=== PATIENT | female | born 1985 | race Caucasian/White ===

== ENCOUNTER 2020-10-12 19:55 | Inpatient (IN) | payer BC ==
[~2020-10-12] VITALS: Ht 172.7 cm; Wt 86.5 kg
[~2020-10-12 19:55] MED LIST: INSU100C SQ; INSU100I13 SQ
[2020-10-12 21:00] VITALS: BP 138/79
[2020-10-12] MEDS: fentaNYL PF VIAL 100 MCG/2 ML VIAL IVP PRN (21:56)
[2020-10-12] MEDS: ONDANSETRON PF 4 MG/2 ML VIAL. IVP PRN (21:56)
[2020-10-12] MEDS: POTASSIUM CL 20MEQ D5-0.45NACL 1,000 ML IV SCH (21:57)
--- NOTE | 2020-10-12 22:00 | NUR ---
Attempting to med reconciliate, patient reports that she doesn't remember her medications, that she is used to obtaining it from [facility], She is in pain, 'mostly my neck and shoulders.." To call Dr Covington for orders.
[2020-10-12 23:07] VITALS: BP 137/82
[2020-10-13] MEDS: PIPERACILLIN/TAZOBACTAM 3.375 GM in IV NORMAL SALINE 50ML 50 ML IV SCH ×5 (00:12→22:59)
[2020-10-13] MEDS: fentaNYL PF VIAL 100 MCG/2 ML VIAL IVP PRN ×4 (00:45→12:18)
--- NOTE | 2020-10-13 01:30 | NUR ---
Patient reporting nausea, did vomit, received zofran, continues to report her neck and shoulder pain, her abdominal pain is at 4/10, reports not 'bad..but this neck pain does hurt..' Patient given a heat pad, she reports to sleep with a heat pad nightly, (?) so not a new complaint (?), she did report to take gabapentin and flexeril for muscle spasms. to her posterior neck and her sternal pain. (she had a NISHA procedure 2019), Patient denies any pain when moving legs or knees up and down, does not have a fever, monitoring.
[2020-10-13] MEDS ORDERED: CYCL10TA2 PO (01:52)
[2020-10-13] MEDS ORDERED: CLON-77 PO (01:52)
[2020-10-13] MEDS ORDERED: MELA10TA2 PO (01:52)
[2020-10-13] MEDS ORDERED: GABA300C18 PO (01:52)
[2020-10-13] MEDS: ONDANSETRON PF 4 MG/2 ML VIAL. IVP PRN ×2 (02:05→12:20)
[2020-10-13 02:44] VITALS: BP 123/90
--- NOTE | 2020-10-13 03:38 | NUR ---
Patient complaining of a headache, reports at this time to have taken Imitrex in the past, "But I think this headache is because I've been vomiting..doesn't feel like a migraine.' Pt had initially reported a migraine, then denies it to feel like a migraine.
[2020-10-13 07:00] VITALS: BP 134/84
[2020-10-13] MEDS: POTASSIUM CL 20MEQ D5-0.45NACL 1,000 ML IV SCH (09:12)
[2020-10-13 09:30] LABS: BASO % 0 % (0-3); EOS % 0 % (0-3); HEMATOCRIT 36.9 % (36.0-47.0); HEMOGLOBIN 11.3 g/dL (12.0-15.5); LYMPH % 8 % (24-48); MEAN CORPUSCULAR HEMOGLOBIN 29 pg (25-35); MEAN CORPUSCULAR HGB CONC 31 g/dL (31-37); MEAN CORPUSCULAR VOLUME 93 fL (79-100); MONO # 1.2 x10^3/uL (0.0-1.1); MONO % 10 % (0-9); NEUT # 10.2 x10^3/uL (1.8-7.7); NEUT % 82 % (31-73); PLATELET COUNT 381 x10^3/uL (140-400); RED BLOOD COUNT 3.96 x10^6/uL (3.50-5.40); RED CELL DISTRIBUTION WIDTH 15.7 % (11.5-14.5); WHITE BLOOD COUNT 12.5 x10^3/uL (4.0-11.0)
[2020-10-13 09:34] LABS: ALBUMIN 2.7 g/dL (3.4-5.0); ALBUMIN/GLOBULIN RATIO 0.6 (1.0-1.7); CALCIUM 8.2 mg/dL (8.5-10.1); CREATININE 0.6 mg/dL (0.6-1.0); GFR 115.1; TOTAL BILIRUBIN 0.9 mg/dL (0.2-1.0); TOTAL PROTEIN 6.9 g/dL (6.4-8.2)
--- NOTE | 2020-10-13 10:21 | NUR ---
SW following. Discussed with RN, pt from home with family, room air, NPO, ad giovanny. Pt currently on IV abx. RN advised no SW needs at this time. SW will continue to follow.
[2020-10-13 11:00] VITALS: BP 128/78
[2020-10-13] MEDS ORDERED: DEXTROSE 50% 25 GM / 50ML DISP.SYRIN. IV PRN ×2 (11:00→13:30)
[2020-10-13] MEDS ORDERED: INSULIN LISPRO 300 UNITS/3 ML VIAL. SQ SCH (12:00)
[2020-10-13] MEDS ORDERED: CITA40TA5 PO (13:46)
[2020-10-13] MEDS ORDERED: CLONAZEPAM1 MG PO (13:46)
[2020-10-13] MEDS ORDERED: GABA600T7 PO (13:46)
[2020-10-13] MEDS ORDERED: ALBU2.5V5 NEB (13:46)
[2020-10-13] MEDS ORDERED: OMEP40CA45 PO (13:46)
[2020-10-13] MEDS ORDERED: TRAM50TA PO (13:46)
[2020-10-13] MEDS ORDERED: NICOTINE 14MG PATCH. TD PRN (14:00)
[2020-10-13] MEDS ORDERED: CYCLOBENZAPRINE 10 MG TABLET. PO SCH (14:00)
[2020-10-13] MEDS ORDERED: clonazePAM 0.5 MG TABLET PO SCH (14:00)
[2020-10-13] MEDS ORDERED: ALBUTEROL SULFATE 2.5 MG/3 ML NEBU. NEB PRN (14:00)
[2020-10-13] MEDS: GABAPENTIN 300 MG CAPSULE. PO SCH ×2 (14:09→20:22)
[2020-10-13] MEDS: PANTOPRAZOLE 40 MG TABLET.DR. PO SCH (14:09)
[2020-10-13] MEDS: CITALOPRAM 20 MG TABLET. PO SCH (14:09)
[2020-10-13] MEDS: traMADol 50 MG TABLET PO PRN ×2 (14:10→20:17)
[2020-10-13] MEDS: CYCLOBENZAPRINE 10 MG TABLET. PO PRN ×2 (14:10→20:22)
[2020-10-13] MEDS: LIDOCAINE (700MG/PATCH) PATCH. TD SCH (14:14)
--- NOTE | 2020-10-13 14:27 | HP ---
ADMIT DATE: 10/12/2020 HISTORY OF PRESENT ILLNESS: The patient is a 35-year-old female patient who presented to the emergency room of [facility] complaining of abdominal pain that started around the umbilical area for 2 days associated with fever, temperature up to 101. She has also some nausea and vomiting. The patient presented to urgent care who reportedly performed the rapid COVID test that was negative and obtained an x-ray of her abdomen. Given physical exam findings and after this testing urgent care provider requested the patient to present to the emergency room for further evaluation. She denied any trauma. Denied any known sick contact. Denied any known exposure to COVID-19. She apparently was extensively investigated and has had lab work as well as imaging studies. Her lab work showed mild leukocytosis. White cell count 12,000. Her chemistry showed deranged liver enzymes. However, her serum lipase was 31 and her lactic acid was 2.3. Urinalysis showed mild proteinuria and large amount of glucosuria and ketonuria, large amount of blood but otherwise unremarkable. Her test was negative and her rapid test for coronavirus was negative. She apparently had a chest x-ray, which showed cardiomegaly due to pericardial effusion concerning for acute pericarditis bibasilar heterogenous opacities, probably representing subsegmental and relaxation atelectasis, although superimposed infection not excluded. She has small bilateral pleural effusion. Her abdomen and pelvis CT scan showed that there is haziness and fluid surrounding the pancreas suggestive of acute pancreatitis. Recommend correlation with lipase, moderate pericardial effusion, moderate bilateral pleural effusion, bilateral lower lobe consolidation and ground-glass opacities may be pneumonia or atelectasis. Periportal edema nonspecific. Consideration includes secondary to pancreatitis, systemic hypervolemia, or hepatitis. Punctate nonobstructing left renal calculi and right adnexal cyst, moderate pelvic free fluid. Findings probably physiologic. Given this finding, the patient was transferred to [facility] for further evaluation and treatment. PAST MEDICAL HISTORY: Significant for type 1 diabetes mellitus, which she has an insulin infusion pump has hyperlipidemia, osteoarthritis. She has peripheral neuropathy, gastroparesis, and migraine headache. PAST SURGICAL HISTORY: Significant for the Saida bar procedure for pectus excavatum. She has also had cholecystectomy. ALLERGIES: SHE IS ALLERGIC TO NONSTEROIDAL ANTI-INFLAMMATORY MEDICATION AND CODEINE. MEDICATIONS: She is currently on following medication. She is on gabapentin 300 mg 3 times a day. She is on clonazepam 0.5 mg at bedtime, Flexeril 10 mg 3 times a day and she is on insulin by insulin infusion pump. FAMILY HISTORY: She has one brother and one sister, both alive and healthy. Father is alive and has hypothyroidism and obstructive sleep apnea. Mother at age of 44 because of alcoholic liver cirrhosis. SOCIAL HISTORY: She is , has a son and a daughter. She smokes half a pack a day, does not drink alcohol or recreational drugs. 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 REVIEW OF SYSTEMS: The patient denied any blurring of vision, cataracts, glaucoma or macular degeneration. She denied any earache, tinnitus or sensory deafness. Denied nosebleed, stuffy nose or postnasal drip. Denied any sore throat, sore tongue, toothache, hoarseness of voice or difficulty swallowing. She did have some nausea and vomiting. Denied any diarrhea or constipation. Denied any hematemesis, melena or hematochezia. Denies any dysuria, frequency or hematuria. Denied any chest pain. Did complain of shortness of breath that apparently has been going on for almost a month now with orthopnea. ASSESSMENT AND PLAN: The patient stated that she has been extensively investigated before her next procedure at [facility] and did a stress test as well as an echocardiogram and all the tests were negative. Given the finding, I think the findings are consistent probably with fluid overload and congestive heart failure. There has a viral infection causing also neck pain and pericarditis and all the findings on the CT scan. My plan is to consult the wrapper opener as well as the balling machine operator and perhaps infectious disease specialist. We will allow her to have clear liquid diet. We will stop her infusion pump and put her on insulin sliding scale. MICHELLE DR: Neena TID: [id number]
--- NOTE | 2020-10-13 14:32 | PDOC2 ---
GI CONSULT Date of Service: DATE: 10/13/20 TIME: 14:32 Reason For Consult: abd pain HPI: HPI: 35 y/o female sent from [facility] last night. 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 Had upper abdominal pain associated w/ n/v and fever (up to 101). Son had similar symptoms, quickly improved. Her symptoms progressed to went to ER yesterday per advice of urgent care. At [facility]: WBC 12.3, Hgb 12.1, MCV 89, plt 457, lactic 2.3, bili 0.8, AST 54, ALT 98, Alk Phos 155, lipase 31. CXR: cardiomegaly due to pericardial effusion concerning for acute pericarditis, small bilateral pleural effusions. CT A/P: moderate pericardial effusion, moderate bilateral pleural effusions, bilateral lower lobe consolidations, periportal edema, non-obstructing left renal cfalculi, haziness and fat surrounding pancreas, fluid inferior to pancreas tail (not organized), IUD, right adnexal cyst, moderate pelvic free fluid. We are asked to see her this afternoon for abd pain. Nurse reports multipseveralle other consults pending as well. Denies reflux/heartburn, dysphagia, hematemesis (though does report hemoptysis), chronic abd pain or chronic n/v, diarrhea, hematochezia, or melena. Typically no issues w/ constipation - last stooled 2-3 days ago. Has lost some weight recently - attributes to diabetes - fluctuates. No previous EGD or colonoscopy. S/p cholecystectomy (no stones). No liver, pancreas, or PUD history. After I saw, H&P reviewed - mentions h/o gastroparesis which she did not mention to me. No NSAIDs. H/o pectus excavatum s/p beatris procedure at [facility] on the [place] in 12/[place]. After that had an abdominal abscess - unclear cause - was hospitalized, treated with antibiotics - resolved. Also recently had some pain in her throat w/ breathing and bending over. Had elevated D-dimer which prompted chest CT at [facility] which was reportedly negative for PE. Has been drinking water, has clear liquids ordered along w/ PO PPI. PMH: PMH: DM w/ insulin pump, pectus excavatum, abdominal abscess, migraines cholecystectomy, Beatris procedure, IUD FH: Family History: Other (diverticulitis, alcoholic cirrhosis) Social History: Smoke: <1 pack per day ALCOHOL: rare Drugs: None ROS: GEN: +fever HEENT: Denies blurred vision, sore throat CV: Denies chest pain RESP: +cough, hemoptysis GI: Per HPI : Denies hematuria, dysuria ENDO: +weight loss NEURO: Denies confusion, dizziness MSK: Denies weakness, joint pain/swelling SKIN: Denies jaundice, pruritus Vitals: Vitals: Vital Signs Date Time Temp Pulse Resp B/P (MAP) Pulse Ox O2 Delivery O2 Flow Rate FiO2 10/13/20 14:10 97 Room Air 10/13/20 11:00 98.7 113 18 128/78 (95) 98.7 Labs: Labs: Laboratory Tests Test 10/13/20 00:09 10/13/20 06:18 10/13/20 08:00 10/13/20 11:01 Glucose (Fingerstick) 239 mg/dL (70-99) 222 mg/dL (70-99) 210 mg/dL (70-99) White Blood Count 12.5 x10^3/uL (4.0-11.0) Red Blood Count 3.96 x10^6/uL (3.50-5.40) Hemoglobin 11.3 g/dL (12.0-15.5) Hematocrit 36.9 % (36.0-47.0) Mean Corpuscular Volume 93 fL (79-100) Mean Corpuscular Hemoglobin 29 pg (25-35) Mean Corpuscular Hemoglobin Concent 31 g/dL (31-37) Red Cell Distribution Width 15.7 % (11.5-14.5) Platelet Count 381 x10^3/uL (140-400) Neutrophils (%) (Auto) 82 % (31-73) Lymphocytes (%) (Auto) 8 % (24-48) Monocytes (%) (Auto) 10 % (0-9) Eosinophils (%) (Auto) 0 % (0-3) Basophils (%) (Auto) 0 % (0-3) Neutrophils # (Auto) 10.2 x10^3/uL (1.8-7.7) Lymphocytes # (Auto) 1.0 x10^3/uL (1.0-4.8) Monocytes # (Auto) 1.2 x10^3/uL (0.0-1.1) Eosinophils # (Auto) 0.0 x10^3/uL (0.0-0.7) Basophils # (Auto) 0.0 x10^3/uL (0.0-0.2) Sodium Level 136 mmol/L (136-145) Potassium Level 4.0 mmol/L (3.5-5.1) Chloride Level 99 mmol/L (98-107) Carbon Dioxide Level 24 mmol/L (21-32) Anion Gap 13 (6-14) Blood Urea Nitrogen 12 mg/dL (7-20) Creatinine 0.6 mg/dL (0.6-1.0) Estimated GFR (Cockcroft-Gault) 115.1 BUN/Creatinine Ratio 20 (6-20) Glucose Level 214 mg/dL (70-99) Lactic Acid Level 1.7 mmol/L (0.4-2.0) Calcium Level 8.2 mg/dL (8.5-10.1) Total Bilirubin 0.9 mg/dL (0.2-1.0) Aspartate Amino Transf (AST/SGOT) 36 U/L (15-37) Alanine Aminotransferase (ALT/SGPT) 79 U/L (14-59) Alkaline Phosphatase 142 U/L (46-116) Total Protein 6.9 g/dL (6.4-8.2) Albumin 2.7 g/dL (3.4-5.0) Albumin/Globulin Ratio 0.6 (1.0-1.7) Lipase 24 U/L (73-393) Allergies: Coded Allergies: NSAIDS (Non-Steroidal Anti-Inflamma (Unverified Allergy, Intermediate, 06/03/14) codeine (Unverified Allergy, Intermediate, 06/03/14) Medications: Current Medications Medications (Trade) Dose Ordered Sig/Isabella Route PRN Reason Start Time Stop Time Status Last Admin Dose Admin Ondansetron HCl (Zofran) 4 mg PRN Q4HRS PRN IVP NAUSEA/VOMITING 1ST CHOICE 10/12/20 21:30 10/13/20 12:20 Fentanyl Citrate (Fentanyl 2ml Vial) 50 mcg PRN Q3HRS PRN IVP SEVERE PAIN 7-10 10/12/20 21:30 10/13/20 12:18 Potassium Chloride/Dextrose/ Sod Cl 1,000 ml @ 100 mls/hr Q10H IV 10/12/20 22:00 10/13/20 13:28 DC 10/13/20 09:12 Piperacillin Sod/ Tazobactam Sod 3.375 gm/Sodium Chloride 50 ml @ 100 mls/hr Q6HRS IV 10/13/20 00:00 10/13/20 12:21 Tramadol HCl (Ultram) 50 mg Q6HRS PRN PO PAIN 10/13/20 14:00 10/13/20 14:10 Citalopram Hydrobromide (CeleXA) 40 mg DAILY PO 10/13/20 14:00 10/13/20 14:09 Gabapentin (Neurontin) 600 mg TID PO 10/13/20 14:00 10/13/20 14:09 Pantoprazole Sodium (Protonix) 40 mg DAILYAC PO 10/13/20 14:00 10/13/20 14:09 Lidocaine (Lidoderm) 2 patch DAILY TD 10/13/20 14:00 10/13/20 14:14 Cyclobenzaprine HCl (Flexeril) 10 mg TID PRN PO MUSCLE SPASMS 10/13/20 14:00 10/13/20 14:10 Imaging: Imaging: per HPI PE: GEN: uncomfortable, family present HEENT: Atraumatic, PERRL LUNGS: some diminished, room air HEART: tachycardic ABD: soft, some distention, epigastric to LUQ discomfort, quiet EXTREMITY: No edema SKIN: No rashes, no jaundice NEURO/PSYCH: A & O 3 A/P: A/P: Upper abd pain, n/v, fever, cough/hemoptysis Leukocytosis, lactic acidosis (resolved), elevated LFTs (better) Abnormal CT - moderate pericardial effusion, moderate bilateral pleural effusions, bilateral lower lobe consolidations, periportal edema, haziness and fat surrounding pancreas, fluid inferior to pancreas tail (not organized) CRC screen - average risk S/p cholecystectomy ?h/o gastroparesis H/o DM, pectus excavatum s/p Beatris procedure ?and post-op abscess -- Cardiology and ID evals pending. ?pancreatitis - unclear cause - cautious with clear liquids. Agree w/ PPI - change to IV if needed. Will ask for records re: abscess from [facility]. Will try to clarify gastroparesis history later. SIMI PAUL October 13, 2020 14:32
--- NOTE | 2020-10-13 14:43 | EKG ---
[facility] [address] [place] [address] Test Date: 2020-10-13 Test Time: 14:40:42 Pat Name: FLORESITA DIAZ Department: Room: 8 1 Gender: F Tie Puller: KATELYN : 1985 Requested By: ИРИНА FOREMAN Order Number: [id number] Reading MD: Measurements Intervals [place] Rate: 108 P: 39 CA: 130 QRS: 31 QRSD: 84 T: 25 QT: 288 QTc: 389 Interpretive Statements SINUS TACHYCARDIA LOW LIMB LEAD VOLTAGE NO SPECIFIC ECG ABNORMALITIES RI6.02 No previous ECG available for comparison
--- NOTE | 2020-10-13 14:48 | PN ---
DATE: 10/13/2020 SUBJECTIVE: The patient is resting, slightly propped up in bed, continue to complain mostly of headache and neck pain, but also mild epigastric and right upper quadrant pain and has had no more nausea or vomiting. PHYSICAL EXAMINATION: GENERAL: When I examined her, she was pale, no jaundice, cyanosis or thyromegaly. No jugular venous distention. Somewhat generalized anasarca. VITAL SIGNS: Her heart rate was 113, blood pressure was 128/78, temperature was 98.7, respiratory rate was 18 and oxygen saturation was 97%. HEAD, EYES, EARS, NOSE AND THROAT: Normocephalic, atraumatic. NECK: Supple. HEART: Showed normal first and second heart sounds, no gallop, rub or murmur. CHEST: Shows central trachea, equal bilateral chest expansion, air entry, vesicular breath sounds. I could not appreciate any crepitation or rhonchi. ABDOMEN: Distended. Tenderness mostly in the epigastric and right upper quadrant. There is no guarding or rigidity. No organomegaly. All hernial orifices intact. Bowel sounds normal. NEUROLOGIC: She is awake, alert, responding appropriately. All cranial nerves intact. She moves without difficulty. Her intake and output incompletely recorded. LABORATORY DATA: Her lab work this morning showed a serum sodium 136, potassium 4, chloride 99, bicarbonate 24, anion gap of 13, BUN 12, creatinine 0.6. Estimated GFR was 115 mL per minute. Her glucose was 114, lactic acid 1.7, calcium was 8.2. Total bilirubin is normal. AST, ALT, alkaline phosphatase slightly elevated. Total protein was 6.9, albumin was 2.7 and lipase is only 24. Her white cell count was 12,500, hemoglobin was 11, hematocrit 36, MCV 93 and platelet count 381,000 with a manual differential showed 82% polymorphs, 8% lymphocytes and 10% monocytes. ASSESSMENT AND PLAN: The patient presented with acute abdominal pain; however, her imaging studies showed fluid around the pericardium, has bilateral pleural effusion as well as fluid around the pancreas, isac hepatis and in the pelvis. The patient is short of breath and said that has been short of breath for almost a month now. She also has orthopnea. My impression is that the patient is probably in heart failure, although obviously other possibilities include viral syndrome as she has also some headache and neck pain and with all the fluid around her pericardium, around the pleural space and the peritoneal cavity. I discontinued her IV fluids and started her on a clear liquid diet. I stopped her insulin infusion pump and will start her on insulin sliding scale. I did consult the applied research director and Infectious Disease specialist. I am not really convinced that she has pancreatitis, although I asked the Gastroenterology to see her also. EAN/OSCAR DR: Neena TID: [id number]
--- NOTE | 2020-10-13 15:04 | PDOC2 ---
CARDIAC CONSULT DATE OF CONSULT Date of Consult DATE: 10/13/20 TIME: 15:01 REASON FOR CONSULT Reason for Consult: Fluid volume overload REFERRING PHYSICIAN Referring Physician: Dr. Covington SOURCE Source: Caregiver, Chart review HISTORY OF PRESENT ILLNESS HISTORY OF PRESENT ILLNESS This is a 35 yo, with history of diabetes and pancreatitis, who presented to [facility] secondary to abdominal pain, nausea/vomiting, and fevers. Was febrile upon arrival to ED. CT abdomen/pelvis suggestive of acute pancreatitis. Also evidence of pericardial and pleural effusion. There was also a nonobstructing left renal calculi and moderate pelvic free fluid. Patient was transferred to [facility] for further evaluation and treatment. Patient presently asleep. HPI obtained from family at bedside and chart review. Family reports she has experiencing some shortness of breath over the last couple of weeks. Also has had some swelling in her LE after a long day of working on her feet. This resolved during the night. No dizziness, diaphoresis. Reports son had been ill with nausea/vomiting, but he got better. She continued to not feel well and experienced abdominal pain so they brought her to the ED of further evaluation and treatment. Patient underwent Saida bar procedure for pectus excavatum at [facility] in December of 2019. Reports undergoing cardiac testing prior to this. Post-operatively, family reports development of abdominal abscess for which she was treated with IV antibiotic therapy with resolution. Family reports she experienced similar symptoms when this abscess developed. PAST MEDICAL HISTORY Cardiovascular: Hyperlipidemia CENTRAL NERVOUS SYSTEM: Periperal neuropathy Hepatobiliary: Other (pancreatitis ) Musculoskeletal: Other (pectus excavatum) Endocrine: Diabetes PAST SURGICAL HISTORY Past Surgical History: Cholecystectomy, Other (Saida bar procedure for pectus ) FAMILY HISTORY Family History: Diabetes, Heart Disease, Hypertension SOCIAL HISTORY Smoke: <1 pack per day ALCOHOL: none Drugs: None Lives: with Family CURRENT MEDICATIONS CURRENT MEDICATIONS Current Medications Medications (Trade) Dose Ordered Sig/Isabella Route PRN Reason Start Time Stop Time Status Last Admin Dose Admin Ondansetron HCl (Zofran) 4 mg PRN Q4HRS PRN IVP NAUSEA/VOMITING 1ST CHOICE 10/12/20 21:30 10/13/20 12:20 Fentanyl Citrate (Fentanyl 2ml Vial) 50 mcg PRN Q3HRS PRN IVP SEVERE PAIN 7-10 10/12/20 21:30 10/13/20 12:18 Potassium Chloride/Dextrose/ Sod Cl 1,000 ml @ 100 mls/hr Q10H IV 10/12/20 22:00 10/13/20 13:28 DC 10/13/20 09:12 Piperacillin Sod/ Tazobactam Sod 3.375 gm/Sodium Chloride 50 ml @ 100 mls/hr Q6HRS IV 10/13/20 00:00 10/13/20 12:21 Tramadol HCl (Ultram) 50 mg Q6HRS PRN PO PAIN 10/13/20 14:00 10/13/20 14:10 Citalopram Hydrobromide (CeleXA) 40 mg DAILY PO 10/13/20 14:00 10/13/20 14:09 Gabapentin (Neurontin) 600 mg TID PO 10/13/20 14:00 10/13/20 14:09 Pantoprazole Sodium (Protonix) 40 mg DAILYAC PO 10/13/20 14:00 10/13/20 14:09 Lidocaine (Lidoderm) 2 patch DAILY TD 10/13/20 14:00 10/13/20 14:14 Cyclobenzaprine HCl (Flexeril) 10 mg TID PRN PO MUSCLE SPASMS 10/13/20 14:00 10/13/20 14:10 ALLERGIES ALLERGIES: Coded Allergies: NSAIDS (Non-Steroidal Anti-Inflamma (Unverified Allergy, Intermediate, 06/03/14) codeine (Unverified Allergy, Intermediate, 06/03/14) ROS Review of System 14 point ROS conducted with pertinent positives noted above in hPI PHYSICAL EXAM General: No acute distress HEENT: Atraumatic Lungs: Clear to auscultation Heart: Regular rate (SR/ST) Abdomen: Soft Extremities: No edema, Normal pulses Skin: No significant lesion Neuro: Other (sleeping ) MUSCULOSKELETAL: No deformity VITALS/I&O VITALS/I&O: Vital Signs Date Time Temp Pulse Resp B/P (MAP) Pulse Ox O2 Delivery O2 Flow Rate FiO2 10/13/20 14:10 97 Room Air 10/13/20 11:00 98.7 113 18 128/78 (95) 98.7 I & O 10/12/20 10/12/20 10/13/20 15:00 23:00 07:00 Intake Total 0 ml 100 ml Output Total 100 ml 270 ml Balance -100 ml -170 ml LABS Lab: Laboratory Tests Test 10/13/20 00:09 10/13/20 06:18 10/13/20 08:00 10/13/20 11:01 Glucose (Fingerstick) 239 mg/dL (70-99) H 222 mg/dL (70-99) H 210 mg/dL (70-99) H White Blood Count 12.5 x10^3/uL (4.0-11.0) H Red Blood Count 3.96 x10^6/uL (3.50-5.40) Hemoglobin 11.3 g/dL (12.0-15.5) L Hematocrit 36.9 % (36.0-47.0) Mean Corpuscular Volume 93 fL (79-100) Mean Corpuscular Hemoglobin 29 pg (25-35) Mean Corpuscular Hemoglobin Concent 31 g/dL (31-37) Red Cell Distribution Width 15.7 % (11.5-14.5) H Platelet Count 381 x10^3/uL (140-400) Neutrophils (%) (Auto) 82 % (31-73) H Lymphocytes (%) (Auto) 8 % (24-48) L Monocytes (%) (Auto) 10 % (0-9) H Eosinophils (%) (Auto) 0 % (0-3) Basophils (%) (Auto) 0 % (0-3) Neutrophils # (Auto) 10.2 x10^3/uL (1.8-7.7) H Lymphocytes # (Auto) 1.0 x10^3/uL (1.0-4.8) Monocytes # (Auto) 1.2 x10^3/uL (0.0-1.1) H Eosinophils # (Auto) 0.0 x10^3/uL (0.0-0.7) Basophils # (Auto) 0.0 x10^3/uL (0.0-0.2) Sodium Level 136 mmol/L (136-145) Potassium Level 4.0 mmol/L (3.5-5.1) Chloride Level 99 mmol/L (98-107) Carbon Dioxide Level 24 mmol/L (21-32) Anion Gap 13 (6-14) Blood Urea Nitrogen 12 mg/dL (7-20) Creatinine 0.6 mg/dL (0.6-1.0) Estimated GFR (Cockcroft-Gault) 115.1 BUN/Creatinine Ratio 20 (6-20) Glucose Level 214 mg/dL (70-99) H Lactic Acid Level 1.7 mmol/L (0.4-2.0) Calcium Level 8.2 mg/dL (8.5-10.1) L Total Bilirubin 0.9 mg/dL (0.2-1.0) Aspartate Amino Transferase (AST) 36 U/L (15-37) Alanine Aminotransferase (ALT) 79 U/L (14-59) H Alkaline Phosphatase 142 U/L (46-116) H Total Protein 6.9 g/dL (6.4-8.2) Albumin 2.7 g/dL (3.4-5.0) L Albumin/Globulin Ratio 0.6 (1.0-1.7) L Lipase 24 U/L (73-393) L Laboratory Tests 10/13/20 08:00 Laboratory Tests 10/13/20 08:00 ASSESSMENT/PLAN ASSESSMENT/PLAN 1. Abdominal pain, nausea/vomiting; Ct abdomen pelvis with evidence of pancreatitis. Lipase 24. as per GI 2. Leukocytosis, lactic acidosis, fevers; ID consulted 3. H/o pectus excavatum s/p Saida procedure at [facility] 12/2019. Underwent cardiac workup at that time. Will obtain records from [facility] 4. H/o abdominal abscess s/p Saida procure; resolved with IV antibiotic therapy. reports symptoms were similar to current presentation 5. Pericardial effusion; noted on CT. Hemodynamically stable. Will obtain echo to assess LV systolic function, pericardial effusion 6. Elevated LFTs 7. Hyperlipidemia 8. Diabetes, II; as per LIO NORRIS APRN October 13, 2020 15:04
[2020-10-13] MEDS: INSULIN LISPRO 300 UNITS/3 ML VIAL. SQ SCH (17:00)
[2020-10-13 19:00] VITALS: BP 127/74
[2020-10-13] MEDS: clonazePAM 0.5 MG TABLET PO PRN (20:22)
[2020-10-13] MEDS: INSULIN GLARGINE SYRINGE. SQ SCH (20:24)
[2020-10-13] MEDS: PATCH REMOVAL. MC SCH (20:31)
[2020-10-13] MEDS ORDERED: NON FORMULARY ITEM (Melatonin 1 TAB) PO SCH (21:00)
[2020-10-13 22:41] VITALS: BP 122/69
[2020-10-14] VITALS (14 sets, daily range): BP systolic 122–164; BP diastolic 61–88
[2020-10-14] MEDS: fentaNYL PF VIAL 100 MCG/2 ML VIAL IVP PRN ×2 (03:04→19:51)
[2020-10-14] MEDS: PIPERACILLIN/TAZOBACTAM 3.375 GM in IV NORMAL SALINE 50ML 50 ML IV SCH ×4 (05:25→23:23)
[2020-10-14] MEDS: clonazePAM 0.5 MG TABLET PO PRN ×2 (05:31→19:50)
[2020-10-14] MEDS: traMADol 50 MG TABLET PO PRN ×2 (06:16→19:51)
[2020-10-14] MEDS: INSULIN LISPRO 300 UNITS/3 ML VIAL. SQ SCH ×3 (08:00→17:00)
[2020-10-14] MEDS: PANTOPRAZOLE 40 MG TABLET.DR. PO SCH (08:15)
[2020-10-14] MEDS: GABAPENTIN 300 MG CAPSULE. PO SCH ×3 (08:15→19:51)
[2020-10-14] MEDS: CITALOPRAM 20 MG TABLET. PO SCH (08:16)
[2020-10-14] MEDS: LIDOCAINE (700MG/PATCH) PATCH. TD SCH (08:18)
[2020-10-14 08:35] LABS: HEMATOCRIT 32.6 % (36.0-47.0); RED BLOOD COUNT 3.76 x10^6/uL (3.50-5.40); RED CELL DISTRIBUTION WIDTH 14.5 % (11.5-14.5); WHITE BLOOD COUNT 10.7 x10^3/uL (4.0-11.0)
[2020-10-14 09:12] LABS: ALBUMIN 2.6 g/dL (3.4-5.0); ALBUMIN/GLOBULIN RATIO 0.6 (1.0-1.7); C-REACTIVE PROTEIN 228.9 mg/L (0-3.3); CALCIUM 8.1 mg/dL (8.5-10.1); CREATININE 0.7 mg/dL (0.6-1.0); GFR 96.4; POTASSIUM 3.3 mmol/L (3.5-5.1); TOTAL BILIRUBIN 0.8 mg/dL (0.2-1.0); TOTAL PROTEIN 6.8 g/dL (6.4-8.2)
--- NOTE | 2020-10-14 10:00 | PN ---
DATE: 10/14/2020 SUBJECTIVE: The patient is resting, slightly propped up in bed in no apparent distress. She continued to complain of abdominal pain, no nausea or vomiting. She tolerated clear liquid. Continue to have neck pain, although the Lidoderm patch is helping. PHYSICAL EXAMINATION: GENERAL: When I examined her, she was pale, but no jaundice, cyanosis, no lymphadenopathy, no thyromegaly, no jugular venous distention, but mild bilateral limb edema. VITAL SIGNS: Her heart rate was 121, blood pressure was 138/88, temperature was 99.2, respiratory rate was 18 and oxygen saturation was 93% on room air. HEAD, EYES, EARS, NOSE AND THROAT: Normocephalic, atraumatic. NECK: Supple. HEART: Normal first and second heart sounds, no gallop, murmur. CHEST: Shows central trachea, equal bilateral chest expansion, air entry, vesicular breath sounds with bilateral basal crepitation. Could not appreciate any rhonchi. ABDOMEN: Distended, soft. Tenderness mostly in the epigastric and right upper quadrant. There is no guarding or rigidity. No organomegaly. All hernial orifice intact. Bowel sounds normal. NEUROLOGIC: She is grossly intact. Her intake and output are incompletely recorded. LABORATORY DATA: Her lab work this morning showed a white cell count down to 10,700, hemoglobin 11, hematocrit 33, MCV 89 and platelet count of 468,000. Her chemistry is still pending at the time of this dictation. ASSESSMENT: Abdominal pain with questionable acute pancreatitis, although serum lipase checked twice and was normal. The patient has also complained of shortness of breath and she has bilateral pleural effusion, pericardial effusion. She has also ascites, indicating probably fluid overload and acute heart failure or perhaps some viral syndrome causing all inflammation around the pericardium and pleural surfaces. She also obviously has infiltrate in both lungs, for which she is already on IV antibiotic. 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 PLAN: My plan is to continue with IV antibiotic. Continue to monitor her blood sugar and adjust insulin as needed. Continue with Lidoderm patch for her neck pain. Continue with Protonix and all other medications. I will repeat all her labs again. [facility] DR: EAN/zulema TID: [id number]
--- NOTE | 2020-10-14 10:15 | CARD ---
MR#: [id number] Date of Study: 10/14/2020 Ordering Physician: LIO NEWSOME, Referring Physician: LIO NEWSOME, Tech: Brittnee Ken [facility] APPROVED REPORT EXAM: Two-dimensional and M-mode echocardiogram with Doppler and color Doppler. Other Information Quality : AverageHR: 105bpm Rhythm : NSR INDICATION Pericardial Effusion 2D DIMENSIONS Left Atrium(2D)3.4 (1.6-4.0cm)IVSd1.2 (0.7-1.1cm) Aortic Root(2D)3.3 (2.0-3.7cm)LVDd3.4 (3.9-5.9cm) LVOT Diameter2.5 (1.8-2.4cm)LVDs2.7 (2.5-4.0cm) FS (%) 19.4 %SV19.6 ml LVEF(%)41.0 (>50%) Aortic Valve AoV Peak Juan C.137.6cm/sAoV VTI21.5cm AO Peak GR.7.6mmHgLVOT Peak Juan C.94.4cm/s LVOT VTI 14.24cmAO Mean GR.4mmHg ESE (VMAX)2.95nw4DRH (VTI)3.35cm2 Mitral Valve MV E Esbbkmwi43.4cm/sMV DECEL SDXH210cs MV A Phbrrhux01.2cm/sMV DMS80qb E/A Ratio1.2MVA (PHT)3.68cm2 TDI E/Lateral E'11.1E/Medial E'10.4 Pulmonary Valve PV Peak Ftbiztyd47.5cm/sPV Peak Grad.4mmHg LEFT VENTRICLE The left ventricle is normal size. There is normal left ventricular wall thickness. The left ventricu lar systolic function is normal and the ejection fraction is within normal range. EF 55% There is nor mal LV segmental wall motion. The left ventricular diastolic function and filling is normal for age. RIGHT VENTRICLE The right ventricle is normal size. There is normal right ventricular wall thickness. The right ventr icular systolic function is normal. ATRIA The left atrium size is normal. The right atrium size is normal. The interatrial septum is intact wit h no evidence for an atrial septal defect or patent foramen ovale as noted on 2-D or Doppler imaging. AORTIC VALVE The aortic valve is normal in structure and function. Doppler and Color Flow revealed no significant aortic regurgitation. There is no significant aortic valvular stenosis. MITRAL VALVE The mitral valve is normal in structure and function. There is no evidence of mitral valve prolapse. There is no mitral valve stenosis. Doppler and Color Flow revealed no mitral valve regurgitation note d. TRICUSPID VALVE The tricuspid valve is normal in structure and function. Doppler and Color Flow revealed no tricuspid valve regurgitation noted. There is no tricuspid valve stenosis. PULMONIC VALVE Doppler and Color Flow revealed no pulmonic valvular regurgitation. There is no pulmonic valvular cassidy nosis. GREAT VESSELS The aortic root is normal in size. The ascending aorta is normal in size. The IVC is dilated and sheryl apses <50% with inspiration. PERICARDIAL EFFUSION There is a large circumferential pericardial effusion. There is evidence of diastolic compression of the right ventricle. There is mild variation in tricuspid and mitral inflow velocities. Overall, cons istent with echocardiographic evidence of tamponade. Critical Notification Critical Value: Yes <Conclusion> The left ventricular systolic function is normal and the ejection fraction is within normal range. EF 55% There is normal LV segmental wall motion. The IVC is dilated and collapses <50% with inspiration. There is a large circumferential pericardial effusion. There is evidence of diastolic compression of the right ventricle. There is mild variation in tricuspid and mitral inflow velocities. Overall, cons istent with echocardiographic evidence of tamponade. Signed by : Enrico Long, Electronically Approved : 10/14/2020 10:14:54
--- NOTE | 2020-10-14 11:08 | PDOC ---
Date of Service: DATE: 10/14/20 TIME: 10:59 Subjective: Subjective: Family present - not feeling better today - she's in the shower. Objective: Objective: D/w Kim/cardiology - plans for pericardiocentesis today. Reviewed [facility] records: n/v/DKA in 12/2019 but worked up for sepsis - CT A/P showed non-enhancing fluid collection between splenic vein and pancreas w/ normal lipase, abd US showed LUQ heterogeneous hyperechoic region in LUQ (indeterminate etiology, corresponds to fluid collection on CT, MRI recommend - no records received of MRI - ?performed) Vital Signs: Vital Signs Date Time Temp Pulse Resp B/P (MAP) Pulse Ox O2 Delivery O2 Flow Rate FiO2 10/14/20 07:17 Room Air 10/14/20 07:00 98.6 103 19 122/79 (93) 95 2.0 98.6 Labs: Laboratory Tests Test 10/13/20 19:49 10/14/20 07:45 10/14/20 07:50 Glucose (Fingerstick) 243 mg/dL 80 mg/dL White Blood Count 10.7 x10^3/uL Red Blood Count 3.76 x10^6/uL Hemoglobin 11.0 g/dL Hematocrit 32.6 % Mean Corpuscular Volume 89 fL Mean Corpuscular Hemoglobin 29 pg Mean Corpuscular Hemoglobin Concent 34 g/dL Red Cell Distribution Width 14.5 % Platelet Count 468 x10^3/uL Sodium Level 136 mmol/L Potassium Level 3.3 mmol/L Chloride Level 99 mmol/L Carbon Dioxide Level 27 mmol/L Anion Gap 10 Blood Urea Nitrogen 11 mg/dL Creatinine 0.7 mg/dL Estimated GFR (Cockcroft-Gault) 96.4 BUN/Creatinine Ratio 16 Glucose Level 76 mg/dL Calcium Level 8.1 mg/dL Total Bilirubin 0.8 mg/dL Aspartate Amino Transf (AST/SGOT) 38 U/L Alanine Aminotransferase (ALT/SGPT) 70 U/L Alkaline Phosphatase 172 U/L C-Reactive Protein, Quantitative 228.9 mg/L Total Protein 6.8 g/dL Albumin 2.6 g/dL Albumin/Globulin Ratio 0.6 Lipase 24 U/L Imaging: Echo 10/14 <Conclusion> The left ventricular systolic function is normal and the ejection fraction is within normal range. EF 55% There is normal LV segmental wall motion. The IVC is dilated and collapses <50% with inspiration. There is a large circumferential pericardial effusion. There is evidence of diastolic compression of the right ventricle. There is mild variation in tricuspid and mitral inflow velocities. Overall, consistent with echocardiographic evidence of tamponade. PE: no exam - pt in shower A/P: Pericardial effusion Abd pain, n/v Anemia (stable), elevated LFTs (bit worse) Abnormal CT - periportal edema, haziness and fat surrounding pancreas, fluid inferior to pancreas tail (not organized) -- Plans as above, [facility] records as above. Pt currently in shower - will follow. Justicifation of Admission Dx: Justifications for Admission: Justification of Admission Dx: Yes SIMI PAUL October 14, 2020 11:08
[2020-10-14] MEDS: DOXYCYCLINE HYCLATE 100 MG TABLET PO SCH ×2 (12:00→19:51)
--- NOTE | 2020-10-14 12:51 | PDOC ---
Provider Note Date of Service: DATE: 10/14/20 TIME: 10:46 Provider Note Echo noted with large circumferential pericardial effusion with evidence of diastolic compression of the RV. Findings consistent with evidence of tamponade. Presently hemodynamically stable, but dyspnea persists. Needs pericardiocentesis. R/b/a discussed with patient and she is agreeable to proceed. Keep NPO. Rapid COVID negative. Justifications for Admission Other Justification LIO NEWSOME APRN October 14, 2020 12:51
[2020-10-14] MEDS ORDERED: LIDOCAINE 1% Multi-Dose 20 ML VIAL. ONE ×2 (14:56→15:42)
[2020-10-14] MEDS ORDERED: MIDAZOLAM HCL/PF 2 MG/2 ML VIAL. ONE ×2 (14:59→16:23)
[2020-10-14] MEDS ORDERED: fentaNYL PF VIAL 100 MCG/2 ML VIAL ONE ×2 (14:59→16:14)
[2020-10-14 15:02] LABS: INFLUENZA A PATIENT NEGATIVE (NEGATIVE); INFLUENZA B PATIENT NEGATIVE (NEGATIVE)
[2020-10-14] MEDS ORDERED: fentaNYL PF VIAL 100 MCG/2 ML VIAL IV ONE (15:15)
[2020-10-14] MEDS ORDERED: MIDAZOLAM HCL/PF 2 MG/2 ML VIAL. IV ONE ×2 (15:15→17:00)
[2020-10-14] MEDS ORDERED: LIDOCAINE 1% Multi-Dose 20 ML VIAL. INJ ONE (15:15)
--- NOTE | 2020-10-14 15:22 | PDOC ---
Provider Note Date of Service: DATE: 10/14/20 TIME: 15:20 Provider Note Reviewed patient's echo, discussed present issues with patient and family. She has significant dyspnea and symptoms that are not consistent with any clear diagnosis presently. She has clear evidence of tamponade by echo. Clinically, not in tamponade but does have exertional dyspnea. We will plan for therapeutic and diagnostic pericardiocentesis. Prior NISHA procedure noted. Plan for apical or subxiphoid approach. Thanks Justifications for Admission Other Justification REEMA PENDLETON MD October 14, 2020 15:22
--- NOTE | 2020-10-14 16:11 | CONS ---
DATE OF CONSULTATION: 10/14/2020 REFERRING PHYSICIAN: Dr. Covington. REASON FOR CONSULTATION: Possible viral syndrome. HISTORY OF PRESENT ILLNESS: A 35-year-old female with history of type 1 diabetes who has insulin pump, hyperlipidemia, osteoarthritis, peripheral neuropathy, gastroparesis, migraine headaches, status post surgery for pectus excavatum at [facility], status post cholecystectomy, presented to the ER of [place] yesterday with complaints of nausea, vomiting, abdominal pain and fever of 101, which started last Sunday. The patient was in her normal health until Sunday when the above symptoms started. Rapid COVID test done, which was negative in the ER. She denies any sick contact. White count was 12,000. She had elevated LFTs. Lactate of 2.3, lipase of 31. UA showed proteinuria, glucosuria, ketonuria. test was negative. X-ray showed cardiomegaly due to pericardial effusion and mild lateral heterogenous opacities and bilateral pleural effusion. CT of the abdomen and pelvis showed haziness with stranding around the pancreas suggestive of acute pancreatitis. The patient was transferred to [facility] for GI workup and further cardiologic evaluation due to pericardial effusion, bilateral pleural effusion, bilateral lower lobe consolidation and ground glass opacities, periportal edema and pancreatic stranding. The patient had a hepatitis test, TB and HIV test done last February during skin prick and was reported negative per patient at bedside. The patient has a history of fatigue, body ache, generalized bone pain, headache, cough with brownish sputum, last night had blood-tinged sputum. She also has increased frequency of urination with burning around the vagina, which she thinks may be coming down with a yeast infection. She denies any rash. She has gained a lot of water weight. The patient is very active, works in the backyard, also does mushroom hunting with "calderón," had a tick exposure. Has pets at home with 3 dogs, one cat and birds. She has two children. 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 White count here was 12.5, hemoglobin of 11.3, neutrophil count of 82%, eosinophil negative, lymphocyte percent is 8 monocytes is 10. Repeat white count today is 10, platelets are 238. Lactate was 1.7 here. Glucose of 239. LFTs were borderline elevated. Albumin of 2.7, lipase of 24, triglycerides of 67. CRP was 228.9. Potassium of 3.3 today. Repeat lipase is 24. No imaging done here. The patient is on Zosyn. Echocardiogram was done which shows large pericardial effusion with ejection fraction of 55%, normal LV segmental wall motion, IVC dilated, evidence of diastolic compression of right ventricle. The patient is awaiting pericardiocentesis per discussion with RN. PAST MEDICAL HISTORY: Diabetes mellitus type 1, pectus excavatum, hyperlipidemia, peripheral neuropathy, history of pancreatitis. PAST SURGICAL HISTORY: Cholecystectomy, Saida bar procedure for pectus excavatum. FAMILY HISTORY: Diabetes, CHF, MS, hypertension. SOCIAL HISTORY: Smokes less than 1 pack per day. Alcohol: Social. No drugs. Lives with and children. Dogs, cats, birds exposure, mushroom hunting, tick exposure. No recent procedures. No dental procedure. No recent travel, no sick contact. CURRENT MEDICATIONS: Zosyn. Other medications reviewed in medication list. ALLERGIES: NONSTEROIDALS, CODEINE. REVIEW OF SYSTEMS: Negative except for above in HPI. PHYSICAL EXAMINATION: VITAL SIGNS: Temperature 98.6, pulse 103, respiratory rate 19, blood pressure 122/79, oxygen saturation 95% on 2 liters O2 by nasal cannula, currently now is on room air. GENERAL: Alert, oriented x 3, tired appearing female, lying in bed comfortably, at bedside. HEENT: Normocephalic, atraumatic. Anicteric. No thrush. Oral mucosa moist. Dentition in good shape. NECK: Supple. Mild lymphadenopathy present. No meningismus. CARDIOVASCULAR: S1, S2, tachycardia. No murmurs appreciated. No pericardial rub appreciated. LUNGS: Decreased breath sounds at the bases. No wheezing. ABDOMEN: Mildly distended, mild hepatomegaly, no masses felt. Bowel sounds present. EXTREMITIES: Trace edema, no cyanosis. DERMATOLOGIC: Warm, dry, no generalized rash. NEUROLOGIC: Alert, awake. Grossly nonfocal, though appears weak. MUSCULOSKELETAL: No joint swelling seen. PSYCHIATRIC: Calm and cooperative. PIV looks okay. LABORATORY DATA: WBC 10.7, was 12.5, hemoglobin 11, platelets 468. Sodium 136, potassium 3.3, creatinine 0.7. AST 38, ALT 70, alkaline phosphatase 172. C-reactive protein 228.9. Albumin 2.6. Lipase 24. IMAGING: As above at [facility]. None here. Echocardiogram as above. CT abdomen and pelvis done at outside hospital shows nonenhancing fluid collection between the spleen, vein and pancreas. Ultrasound shows left upper quadrant heterogeneous hypoechoic region in the left upper quadrant. IMPRESSION: 1. Febrile illness. 2. Large pericardial effusion and bilateral pleural effusions. Etiology could be infectious versus noninfectious 3. Nausea, vomiting and abdominal pain with abnormal LFTs. 4. Abnormal CT abdomen with periportal edema, stranding surrounding the pancreas. 5. Leukocytosis and lactic acidosis. 6. History of nephrolithiasis. 7. History of smoking. 8. Diabetes mellitus type 1. 9. Protein-calorie malnutrition. 10. Dog, cat and a bird exposure. 11. Anemia. RECOMMENDATIONS: 1. Continue Zosyn. 2. Start doxycycline. 3. Awaiting pericardiocentesis .Please send pericardial fluid for routine studies including cell count, Gram stain,bacterial cultures. 4. We will obtain chlamydia, psittacosis serology, viral serologies Respiratory viral panel PCR is not available at this center. 5. Follow up labs and cultures. 6. Continue supportive care. 7. Obtain HIV antibody. The patient gave verbal consent. Hepatitis panel 8. Continue supportive care. Discussed with at bedside. Discussed with nursing staff. Thank you for allowing me to participate in this patient's care. If you have any questions, do not hesitate to contact me. PATTI/OSCAR/CHRISTIAN DR: June TID: [id number] HEMA
--- NOTE | 2020-10-14 16:50 | NUR ---
Patient arrived to room 256 via bed from laboratory assistant around 1650. Patient A&OX4. VSS. Family at bedside. L lower chest pericardial drain dressing CDI, soft, warm. Will continue to monitor.
[2020-10-14] MEDS ORDERED: fentaNYL PF VIAL 100 MCG/2 ML VIAL IVP ONE (17:00)
[2020-10-14] MEDS: LACTOBACILLUS RHAMNOSUS GG 1 CAPSULE. PO SCH (19:51)
[2020-10-14] MEDS: HEPARIN for IV BOLUS 10,000 UNIT/10 ML VIAL. INT CAT SCH (19:52)
[2020-10-14 20:10] LABS: ANA INTERP Negative (.)
[2020-10-14] MEDS: PATCH REMOVAL. MC SCH (21:00)
[2020-10-14] MEDS: INSULIN GLARGINE SYRINGE. SQ SCH (21:31)
--- NOTE | 2020-10-14 23:09 | PDOC4 ---
BRIEF OPERATIVE NOTE Pre-Op Diagnosis Tamponade Post-Op Diagnosis Same Procedure Performed Pericardiocentesis Surgeon Mercedes Utilization Review Specialist None EBL 30 mL Anesthesiologist None Anesthesia Type: Conscious Sedation Specimens Obtained Approximately 500 mL pericardial fluid Findings Brief op note: Patient underwent pericardiocentesis via the subxipohid approach today. Due the patient's recent NISHA procedure, placement of the pericardial drain via apical approach was difficult due to limited echo windows. The subxiphoid approach was felt to be the best window based on echo images. Under lidocaine local anesthesia, a 20 gauge pericardial needle was placed in the pericardial place without difficulty. Confirmation of placement in the pericardial space was confirmed via wire movement fluoroscopically and via measurement of pericardial pressure which was recorded at 12 mm Hg. An 8Fr drain was placed without significant difficulty. Approximately 500 mL of serosagenous fluid was removed. Pre and post echo images confirmed resolution of tamponade physiology and pericardial effusion with preserved LV/RV function. Patient tolerated the procedure well and transported to the floor in stable condition. Pericardial fluid was sent for cultures and cell counts. Plan for clamping drain in a.m, repeat echo in 4 hours and consider removal. Thanks REEMA PENDLETNO MD October 14, 2020 23:09
[2020-10-15] VITALS (10 sets, daily range): BP systolic 101–129; BP diastolic 57–81
[2020-10-15] MEDS: traMADol 50 MG TABLET PO PRN ×2 (01:55→20:47)
[2020-10-15] MEDS: fentaNYL PF VIAL 100 MCG/2 ML VIAL IVP PRN ×2 (01:55→14:45)
[2020-10-15 05:09] LABS: HEMATOCRIT 35.9 % (36.0-47.0); HEMOGLOBIN 11.9 g/dL (12.0-15.5); RED BLOOD COUNT 4.09 x10^6/uL (3.50-5.40); RED CELL DISTRIBUTION WIDTH 14.4 % (11.5-14.5); WHITE BLOOD COUNT 9.1 x10^3/uL (4.0-11.0)
[2020-10-15 05:30] LABS: ALBUMIN 2.4 g/dL (3.4-5.0); ALBUMIN/GLOBULIN RATIO 0.6 (1.0-1.7); CALCIUM 8.2 mg/dL (8.5-10.1); CREATININE 0.7 mg/dL (0.6-1.0); GFR 96.4; POTASSIUM 3.1 mmol/L (3.5-5.1); TOTAL BILIRUBIN 0.7 mg/dL (0.2-1.0); TOTAL PROTEIN 6.4 g/dL (6.4-8.2)
[2020-10-15 06:13] LABS: IGG1 705 mg/dL (248-810); IGG2 151 mg/dL (130-555); IGG3 39 mg/dL (15-102); IGG4 2 mg/dL (2-96); TOTAL IGG 934 mg/dL (586-1602)
[2020-10-15] MEDS: PIPERACILLIN/TAZOBACTAM 3.375 GM in IV NORMAL SALINE 50ML 50 ML IV SCH ×3 (06:21→17:43)
[2020-10-15] MEDS: PANTOPRAZOLE 40 MG TABLET.DR. PO SCH (06:21)
[2020-10-15] MEDS: INSULIN LISPRO 300 UNITS/3 ML VIAL. SQ SCH ×4 (08:00→17:49)
--- NOTE | 2020-10-15 08:30 | CARD ---
MR#: [id number] Date of Study: 10/14/2020 Ordering Physician: REEMA PENDLETON, Referring Physician: REEMA PENDLETON, Tech: Brittnee Ken [facility] APPROVED REPORT EXAM: Two-dimensional and M-mode echocardiogram with Doppler and color Doppler. INDICATION Pericardial Effusion LEFT VENTRICLE The left ventricle is normal size. There is normal left ventricular wall thickness. The left ventricu lar systolic function is normal and the ejection fraction is within normal range. There is normal LV segmental wall motion. RIGHT VENTRICLE The right ventricle is normal size. There is normal right ventricular wall thickness. The right ventr icular systolic function is normal. PERICARDIAL EFFUSION No significant pericardial effusion at case completion. <Conclusion> Successful echocardiographic guided pericardiocentesis via the subxiphoid approach. No evidence of tamponade on echocardiogram at case completion. Signed by : Reema Pendleton, Electronically Approved : 10/15/2020 08:29:51
[2020-10-15] MEDS: CITALOPRAM 20 MG TABLET. PO SCH (08:33)
[2020-10-15] MEDS: LACTOBACILLUS RHAMNOSUS GG 1 CAPSULE. PO SCH ×2 (08:33→20:47)
[2020-10-15] MEDS: GABAPENTIN 300 MG CAPSULE. PO SCH ×3 (08:33→20:47)
[2020-10-15] MEDS: DOXYCYCLINE HYCLATE 100 MG TABLET PO SCH ×2 (08:33→20:47)
--- NOTE | 2020-10-15 08:35 | CARD ---
MR#: [id number] Date of Study: 10/14/2020 Ordering Physician: REEMA LONG, Referring Physician: REEMA LONG, Tech: RT Karl(R) APPROVED REPORT Technologist: Nory Santiago RT(R) Nurse: Swathi Otero RN Procedure(s) performed: Sedation Time: 60 Minutes Dose: 13 Gycm2 Fluoro Time: 4.5 minutes CASE TECHNIQUE IV conscious sedation was used throughout procedure with appropriate monitoring and was performed in the presence of a registered nurse who was an independent trained observer other than the physician p erforming the procedure. During this case, Fluoroscopy and no contrast were used for imaging. Specime n(s) Removed: Yes Estimated Blood loss: 25 cc's. PROCEDURE NARRATIVE Clinical information: 35 old woman presented to the hospital with fevers. Echocardiogram revealed large pericardial effusi on with tamponade physiology. Due to the patient's worsening exertional dyspnea and tachycardia deci ishmael was made to take the patient to the cardiac catheterization laboratory for pericardiocentesis. Procedure details: After appropriate informed consent the chest was prepped and draped in usual sterile fashion in the a pical and subxiphoid regions. The patient previously had a NISHA procedure for pectus excavatum. Thi s complicated the ability to perform an apical approach due to diminished windows. Based on echocard iogram it was felt that the best approach would be subxiphoid. Under 1% lidocaine local anesthesia a pericardial needle with echocardiographic guidance was placed in the pericardial space and confirmat ion was performed via aspiration of fluid and pressure transduction. Intrapericardial pressure was a pproximately 12 mmHg. Next, a J-wire was placed in the pericardial space and confirmation again was made fluoroscopically that the wire was in the pericardial space. Next serial dilation was performed and an 8 [place]ish pericardial drain was placed without difficulty. Approximately 750 mL of serosangui neous fluid was removed and the drain was attached to bag for continued gravity drainage. At case wi mpletion echocardiogram revealed trivial pericardial effusion. The patient tolerated the procedure. No acute complications are noted. The patient was transferred to the floor in stable condition. Conclusion 1. Successful echocardiographic and fluoroscopic guided pericardiocentesis via the subxiphoid approa ch with removal of approximately 750 mL of serosanguineous fluid. Recommendations 1. Follow-up cultures and cell counts per ID service. 2. We will plan for drain removal in the next 24 hours after repeat echocardiogram. Signed by : Reema Long, Electronically Approved : 10/15/2020 08:34:45
[2020-10-15] MEDS: LIDOCAINE (700MG/PATCH) PATCH. TD SCH (08:38)
--- NOTE | 2020-10-15 08:48 | PDOC ---
Infectious Disease Note Subjective: Subjective Patient feels a little better today Fever pattern improving When pericardiocentesis with about 800 mL sero sanguinous fluid removal Vital Signs: Vital Signs Vital Signs Date Time Temp Pulse Resp B/P (MAP) Pulse Ox O2 Delivery O2 Flow Rate FiO2 10/15/20 07:00 99.5 114 18 127/73 (91) 91 Room Air 99.5 10/15/20 02:06 2.0 Physical Exam: PHYSICAL EXAM GENERAL: Alert, oriented x 3, lying in bed comfortably, nontoxic-appearing looks better HEENT: Normocephalic, atraumatic. Anicteric. No thrush. Oral mucosa moist. Dentition in good shape. NECK: Supple. Mild lymphadenopathy present. No meningismus. CARDIOVASCULAR: S1, S2, tachycardia. No murmurs appreciated. No pericardial rub appreciated. Pericardial drain in place with about 800 mL of serosanguineous fluid LUNGS: Decreased breath sounds at the bases. No wheezing. ABDOMEN: Mildly distended, mild hepatomegaly, no masses felt. Bowel sounds present. EXTREMITIES: Trace edema, no cyanosis. DERMATOLOGIC: Warm, dry, no generalized rash. NEUROLOGIC: Alert, awake. Grossly nonfocal, though appears weak. MUSCULOSKELETAL: No joint swelling seen. PSYCHIATRIC: Calm and cooperative. PIV looks okay. Medications: Inpatient Meds: Medications reviewed. Labs: Lab Laboratory Tests Test 10/14/20 11:22 10/14/20 13:20 10/14/20 13:50 10/14/20 17:31 Glucose (Fingerstick) 133 mg/dL (70-99) 102 mg/dL (70-99) Erythrocyte Sedimentation Rate 74 (0-25) Hepatitis A IgM Antibody Nonreactive (Nonreactive) Hepatitis B Surface Antigen Nonreactive (Nonreactive) Hepatitis B Core IgM Antibody Nonreactive (Nonreactive) Hepatitis C IgG Antibody Nonreactive (Nonreactive) HIV (1&2) Antibody Screen Nonreactive (Nonreactive) Influenza Type A Antigen Negative (NEGATIVE) Influenza Type B Antigen Negative (NEGATIVE) Group A Streptococcus Rapid Negative (NEGATIVE) Test 10/14/20 21:11 10/15/20 05:00 10/15/20 07:34 Glucose (Fingerstick) 210 mg/dL (70-99) 200 mg/dL (70-99) White Blood Count 9.1 x10^3/uL (4.0-11.0) Red Blood Count 4.09 x10^6/uL (3.50-5.40) Hemoglobin 11.9 g/dL (12.0-15.5) Hematocrit 35.9 % (36.0-47.0) Mean Corpuscular Volume 88 fL (79-100) Mean Corpuscular Hemoglobin 29 pg (25-35) Mean Corpuscular Hemoglobin Concent 33 g/dL (31-37) Red Cell Distribution Width 14.4 % (11.5-14.5) Platelet Count 453 x10^3/uL (140-400) Sodium Level 139 mmol/L (136-145) Potassium Level 3.1 mmol/L (3.5-5.1) Chloride Level 100 mmol/L (98-107) Carbon Dioxide Level 31 mmol/L (21-32) Anion Gap 8 (6-14) Blood Urea Nitrogen 7 mg/dL (7-20) Creatinine 0.7 mg/dL (0.6-1.0) Estimated GFR (Cockcroft-Gault) 96.4 BUN/Creatinine Ratio 10 (6-20) Glucose Level 209 mg/dL (70-99) Calcium Level 8.2 mg/dL (8.5-10.1) Total Bilirubin 0.7 mg/dL (0.2-1.0) Aspartate Amino Transf (AST/SGOT) 23 U/L (15-37) Alanine Aminotransferase (ALT/SGPT) 51 U/L (14-59) Alkaline Phosphatase 153 U/L (46-116) JX-Sbp-L-Type Natriuretic Peptide 1042 pg/mL (0-124) Total Protein 6.4 g/dL (6.4-8.2) Albumin 2.4 g/dL (3.4-5.0) Albumin/Globulin Ratio 0.6 (1.0-1.7) Lipase 34 U/L (73-393) Objective: Assessment: 1. Febrile illness. Fever pattern improved 2. Large pericardial effusion and bilateral pleural effusions. Etiology could be infectious versus noninfectious. Does not appear to be mycobacterial on clinical condition S/P Pericardiocentesis with 750 mL of serosanguineous fluid. October 14, 2020 Cell count count not available as the specimen, clotted 3. Nausea, vomiting and abdominal pain with abnormal LFTs. Improved 4. Abnormal CT abdomen with periportal edema, stranding surrounding the pancreas. 5. Leukocytosis and lactic acidosis. 6. History of nephrolithiasis. 7. History of smoking. 8. Diabetes mellitus type 1. 9. Protein-calorie malnutrition. 10. Dog, cat and a bird exposure. 11. Anemia. Plan: Plan of Care Continue Zosyn and doxycycline Infectious disease serologies canceled by lab; possibly not available at this center Will reorder the same and see if they have canceled by error, nursing staff will coordinate with lab Agree with sending pericardial fluid for cell count Follow-up pericardial fluid Gram stain and cultures HIV and hepatitis profile negative Follow-up serologies Continue supportive care Discussed with nursing staff Discussed with ROSETTE TAVAREZ MD October 15, 2020 08:48
--- NOTE | 2020-10-15 08:50 | PDOC ---
Infectious Disease Note Vital Signs: Vital Signs Vital Signs Date Time Temp Pulse Resp B/P (MAP) Pulse Ox O2 Delivery O2 Flow Rate FiO2 10/15/20 07:00 99.5 114 18 127/73 (91) 91 Room Air 99.5 10/15/20 02:06 2.0 Medications: Inpatient Meds: Medications reviewed. Labs: Lab Laboratory Tests Test 10/14/20 11:22 10/14/20 13:20 10/14/20 13:50 10/14/20 17:31 Glucose (Fingerstick) 133 mg/dL (70-99) 102 mg/dL (70-99) Erythrocyte Sedimentation Rate 74 (0-25) Hepatitis A IgM Antibody Nonreactive (Nonreactive) Hepatitis B Surface Antigen Nonreactive (Nonreactive) Hepatitis B Core IgM Antibody Nonreactive (Nonreactive) Hepatitis C IgG Antibody Nonreactive (Nonreactive) HIV (1&2) Antibody Screen Nonreactive (Nonreactive) Influenza Type A Antigen Negative (NEGATIVE) Influenza Type B Antigen Negative (NEGATIVE) Group A Streptococcus Rapid Negative (NEGATIVE) Test 10/14/20 21:11 10/15/20 05:00 10/15/20 07:34 Glucose (Fingerstick) 210 mg/dL (70-99) 200 mg/dL (70-99) White Blood Count 9.1 x10^3/uL (4.0-11.0) Red Blood Count 4.09 x10^6/uL (3.50-5.40) Hemoglobin 11.9 g/dL (12.0-15.5) Hematocrit 35.9 % (36.0-47.0) Mean Corpuscular Volume 88 fL (79-100) Mean Corpuscular Hemoglobin 29 pg (25-35) Mean Corpuscular Hemoglobin Concent 33 g/dL (31-37) Red Cell Distribution Width 14.4 % (11.5-14.5) Platelet Count 453 x10^3/uL (140-400) Sodium Level 139 mmol/L (136-145) Potassium Level 3.1 mmol/L (3.5-5.1) Chloride Level 100 mmol/L (98-107) Carbon Dioxide Level 31 mmol/L (21-32) Anion Gap 8 (6-14) Blood Urea Nitrogen 7 mg/dL (7-20) Creatinine 0.7 mg/dL (0.6-1.0) Estimated GFR (Cockcroft-Gault) 96.4 BUN/Creatinine Ratio 10 (6-20) Glucose Level 209 mg/dL (70-99) Calcium Level 8.2 mg/dL (8.5-10.1) Total Bilirubin 0.7 mg/dL (0.2-1.0) Aspartate Amino Transf (AST/SGOT) 23 U/L (15-37) Alanine Aminotransferase (ALT/SGPT) 51 U/L (14-59) Alkaline Phosphatase 153 U/L (46-116) OG-Daa-N-Type Natriuretic Peptide 1042 pg/mL (0-124) Total Protein 6.4 g/dL (6.4-8.2) Albumin 2.4 g/dL (3.4-5.0) Albumin/Globulin Ratio 0.6 (1.0-1.7) Lipase 34 U/L (73-393) Plan: Plan of Care ROSETTE Cantrell MD October 15, 2020 08:50
[2020-10-15] MEDS: HEPARIN for IV BOLUS 10,000 UNIT/10 ML VIAL. INT CAT SCH (09:00)
--- NOTE | 2020-10-15 09:06 | PDOC ---
CARDIO Progress Notes Date and Time Date of Service 10/15/2020 Time of Evaluation 0930 Subjective Subjective: No shortness of breath, No Palpitations, Other (still has some chest pressure but better) Vitals Vitals Vital Signs Date Time Temp Pulse Resp B/P (MAP) Pulse Ox O2 Delivery O2 Flow Rate FiO2 10/15/20 07:00 99.5 114 18 127/73 (91) 91 Room Air 99.5 10/15/20 02:06 2.0 Weight Weight [ ] Input and Output Intake and Output Intake and Output 10/15/20 07:00 Intake Total 1050 ml Output Total 750 ml Balance 300 ml Intake Oral 1050 ml Drainage Total 70 ml Other 680 ml # Voids 4 Laboratory Labs Laboratory Tests Test 10/14/20 11:22 10/14/20 13:20 10/14/20 13:50 10/14/20 17:31 Glucose (Fingerstick) 133 mg/dL (70-99) 102 mg/dL (70-99) Erythrocyte Sedimentation Rate 74 (0-25) Hepatitis A IgM Antibody Nonreactive (Nonreactive) Hepatitis B Surface Antigen Nonreactive (Nonreactive) Hepatitis B Core IgM Antibody Nonreactive (Nonreactive) Hepatitis C IgG Antibody Nonreactive (Nonreactive) HIV (1&2) Antibody Screen Nonreactive (Nonreactive) Influenza Type A Antigen Negative (NEGATIVE) Influenza Type B Antigen Negative (NEGATIVE) Group A Streptococcus Rapid Negative (NEGATIVE) Test 10/14/20 21:11 10/15/20 05:00 10/15/20 07:34 Glucose (Fingerstick) 210 mg/dL (70-99) 200 mg/dL (70-99) White Blood Count 9.1 x10^3/uL (4.0-11.0) Red Blood Count 4.09 x10^6/uL (3.50-5.40) Hemoglobin 11.9 g/dL (12.0-15.5) Hematocrit 35.9 % (36.0-47.0) Mean Corpuscular Volume 88 fL (79-100) Mean Corpuscular Hemoglobin 29 pg (25-35) Mean Corpuscular Hemoglobin Concent 33 g/dL (31-37) Red Cell Distribution Width 14.4 % (11.5-14.5) Platelet Count 453 x10^3/uL (140-400) Sodium Level 139 mmol/L (136-145) Potassium Level 3.1 mmol/L (3.5-5.1) Chloride Level 100 mmol/L (98-107) Carbon Dioxide Level 31 mmol/L (21-32) Anion Gap 8 (6-14) Blood Urea Nitrogen 7 mg/dL (7-20) Creatinine 0.7 mg/dL (0.6-1.0) Estimated GFR (Cockcroft-Gault) 96.4 BUN/Creatinine Ratio 10 (6-20) Glucose Level 209 mg/dL (70-99) Calcium Level 8.2 mg/dL (8.5-10.1) Total Bilirubin 0.7 mg/dL (0.2-1.0) Aspartate Amino Transf (AST/SGOT) 23 U/L (15-37) Alanine Aminotransferase (ALT/SGPT) 51 U/L (14-59) Alkaline Phosphatase 153 U/L (46-116) NN-Lop-Q-Type Natriuretic Peptide 1042 pg/mL (0-124) Total Protein 6.4 g/dL (6.4-8.2) Albumin 2.4 g/dL (3.4-5.0) Albumin/Globulin Ratio 0.6 (1.0-1.7) Lipase 34 U/L (73-393) Physical Exam HEENT: Neck Supple W Full Motion Chest: Symmetric LUNGS: Other (diminished bases) Heart: RRR (SR/ST) Abdomen: Soft N/T Extremities: Other (trace to 1+ bilateral LE pitting edema) Neurology: alert, oriented, follow commands Assessment Assessment 1. Abdominal pain, nausea/vomiting; lipase nml. symptoms better 2. Leukocytosis, lactic acidosis, fevers; ID following 3. H/o pectus excavatum s/p Saida procedure at [facility] 12/2019. Underwent cardiac workup at that time. Will obtain records from [facility] 4. H/o abdominal abscess s/p Saida procure; resolved with IV antibiotic therapy. reports symptoms were similar to current presentation 5. Pericardial effusion with tamponade features: S/P pericardiocentesis 500 ml SS drain. tolerated procedure well 6. Elevated LFTs 7. Hyperlipidemia 8. Diabetes, II; as per IM 9. Reactive sinus tachycardia Recommendations Clamp pericardial cath and repeat echo in 4 hours and will consider removal. Approx 700 ml same as last noc with serosanguinous drain Secondary prevention measures Replace K Justicifation of Admission Dx: Justifications for Admission: Justification of Admission Dx: Yes STERLING MAGALLON CONTINUOUS MINING OPERATOR October 15, 2020 09:06
[2020-10-15] MEDS ORDERED: POTASSIUM CHLORIDE 20 MEQ TABLET.ER. PO ONE (09:15)
--- NOTE | 2020-10-15 09:50 | PN ---
DATE: 10/15/2020 SUBJECTIVE: The patient is resting, slightly propped up in bed, in no apparent distress. Stated that her neck pain has dissipated. Has no abdominal pain. She underwent pericardiocentesis and about 500 mL of serosanguineous fluid were drained. Her drain is clamped this morning with a plan to repeat an echocardiogram and eventually remove the drain if possible. PHYSICAL EXAMINATION: GENERAL: When I examined her this morning, she looked well and was clearly in no apparent respiratory distress. No pallor, jaundice, cyanosis, or thyromegaly. No jugular venous distention. No lower limb edema. VITAL SIGNS: Her heart rate was 114, blood pressure was 127/73, temperature was 99.5, respiratory rate was 18 and oxygen saturation was 91% on 2 liters of oxygen. HEAD, EYES, EARS, NOSE AND THROAT: Normocephalic, atraumatic. NECK: Supple. HEART: Showed normal first and second heart sounds. No gallop, rub or murmur. CHEST: Shows central trachea, equal bilateral chest expansion, air entry, vesicular breath sounds. I could not appreciate any crepitation or rhonchi anteriorly. She has a pericardial drain in the subxiphoid area, draining serosanguineous fluid. ABDOMEN: Distended, soft, nontender. No guarding or rigidity. No organomegaly. Mild discomfort in the epigastric and right upper quadrant. NEUROLOGIC: She is awake, alert, responding appropriately. All cranial nerves intact. She moves extremities without difficulty. Her intake over the last 24 hours was 980 and no output was recorded. LABORATORY DATA: As of this morning, her white cell count was 9000, hemoglobin 12, hematocrit 36, MCV 88 and platelet count of 453,000. Her chemistry showed a serum sodium 139, potassium 3.1, chloride 100, bicarbonate 31, anion gap of 8, BUN 7, creatinine 0.7. Estimated GFR was 96 mL per minute. Her glucose was 209, calcium was 8.2. Total bilirubin, AST, ALT are normal. Alkaline phosphatase slightly elevated. Her beta natriuretic peptide was 1042. Total protein was 6.4, albumin was 2.4. Serum lipase was 34. ASSESSMENT: 1. Abdominal pain, questionable acute pancreatitis, although her serum lipase has been consistently well within normal range. 2. The patient has polyserositis with pericardial effusion and ascites. 3. The patient also complained of fever and complained of neck pain. 4. The patient has pericardial tamponade, for which she underwent pericardiocentesis, about 500 mL of serosanguineous fluid were removed. 5. The patient has bilateral lung infiltrate, for which she was started on IV antibiotic. 6. Type 1 diabetes mellitus, for which she is on insulin. She used to have an insulin infusion pump; however, she is now on insulin sliding scale. 7. Hypothyroidism. Her inflammatory markers are high including sedimentation rate of 74 mm per hour and C-reactive protein of 228.9 mg per liter. PLAN: To continue with IV antibiotic. Continue with doxycycline. Continue with piperacillin and tazobactam. MARIAA DR: Neena TID: [id number]
--- NOTE | 2020-10-15 10:09 | PDOC ---
Date of Service: DATE: 10/15/20 TIME: 10:04 Subjective: Subjective: Feels better - no n/v, tolerating PO but didn't like cream of wheat for breakfast. Less abd pain. Objective: Vital Signs: Vital Signs Date Time Temp Pulse Resp B/P (MAP) Pulse Ox O2 Delivery O2 Flow Rate FiO2 10/15/20 08:00 Room Air 10/15/20 07:00 99.5 114 18 127/73 (91) 91 99.5 10/15/20 02:06 2.0 Labs: Laboratory Tests Test 10/14/20 11:22 10/14/20 13:20 10/14/20 13:50 10/14/20 17:31 Glucose (Fingerstick) 133 mg/dL 102 mg/dL Erythrocyte Sedimentation Rate 74 Hepatitis A IgM Antibody Nonreactive Hepatitis B Surface Antigen Nonreactive Hepatitis B Core IgM Antibody Nonreactive Hepatitis C IgG Antibody Nonreactive HIV (1&2) Antibody Screen Nonreactive Influenza Type A Antigen Negative Influenza Type B Antigen Negative Group A Streptococcus Rapid Negative Test 10/14/20 21:11 10/15/20 05:00 10/15/20 07:34 Glucose (Fingerstick) 210 mg/dL 200 mg/dL White Blood Count 9.1 x10^3/uL Red Blood Count 4.09 x10^6/uL Hemoglobin 11.9 g/dL Hematocrit 35.9 % Mean Corpuscular Volume 88 fL Mean Corpuscular Hemoglobin 29 pg Mean Corpuscular Hemoglobin Concent 33 g/dL Red Cell Distribution Width 14.4 % Platelet Count 453 x10^3/uL Sodium Level 139 mmol/L Potassium Level 3.1 mmol/L Chloride Level 100 mmol/L Carbon Dioxide Level 31 mmol/L Anion Gap 8 Blood Urea Nitrogen 7 mg/dL Creatinine 0.7 mg/dL Estimated GFR (Cockcroft-Gault) 96.4 BUN/Creatinine Ratio 10 Glucose Level 209 mg/dL Calcium Level 8.2 mg/dL Total Bilirubin 0.7 mg/dL Aspartate Amino Transf (AST/SGOT) 23 U/L Alanine Aminotransferase (ALT/SGPT) 51 U/L Alkaline Phosphatase 153 U/L NY-Kux-C-Type Natriuretic Peptide 1042 pg/mL Total Protein 6.4 g/dL Albumin 2.4 g/dL Albumin/Globulin Ratio 0.6 Lipase 34 U/L Imaging: Pericardiocentesis Conclusion 1. Successful echocardiographic and fluoroscopic guided pericardiocentesis via the subxiphoid approach with removal of approximately 750 mL of serosanguineous fluid. Recommendations 1. Follow-up cultures and cell counts per ID service. 2. We will plan for drain removal in the next 24 hours after repeat echocardiogram. PE: GEN: NAD - looks better today LUNGS: clear, NC 2L HEART: tachycardic - drain serosang ABD: soft, less upper abd discomfort NEURO/PSYCH: A & O 3 A/P: Pericardial effusion s/p pericardiocentesis - unclear cause, fluid studies pending Abd pain, n/v - resolving - ?pancreatitis on CT (no obvious risk factors) ACD/ALEX, elevated LFTs (better) -- ADAT, continue support from GI standpoint. Justicifation of Admission Dx: Justifications for Admission: Justification of Admission Dx: Yes SIMI PAUL October 15, 2020 10:09
--- NOTE | 2020-10-15 11:50 | NUR ---
SS following for discharge planning. SS reviewed pt chart and discussed with pt RN. Pt is from home with family and is currently on room air. Pt on IV Zosyn and PO Doxy. Pt had pericardiocentesis on 10/14/2020. Discharge plan is to home when medically ready. SS will continue to follow for discharge planning.
[2020-10-15] MEDS ORDERED: LIDOCAINE 2% TOPICAL JELLY 5GM TUBE. TP ONE (14:30)
[2020-10-15 14:33] LABS: CALCIUM 8.8 mg/dL (8.5-10.1); CREATININE 1.1 mg/dL (0.6-1.0); GFR 57.2; POTASSIUM 3.6 mmol/L (3.5-5.1)
--- NOTE | 2020-10-15 14:41 | CARD ---
MR#: [id number] Date of Study: 10/15/2020 Ordering Physician: STERLING MAGALLON, Referring Physician: STERLING MAGALLON Tech: Brittnee Ken [facility] APPROVED REPORT EXAM: Two-dimensional and M-mode echocardiogram with Doppler and color Doppler. Other Information Quality : AverageHR: 110bpm Rhythm : NSR INDICATION Pericardial Effusion 2D DIMENSIONS Left Atrium(2D)3.3 (1.6-4.0cm)IVSd1.2 (0.7-1.1cm) Aortic Root(2D)2.8 (2.0-3.7cm)LVDd4.3 (3.9-5.9cm) LVOT Diameter2.5 (1.8-2.4cm)PWd1.1 (0.7-1.1cm) LVDs2.7 (2.5-4.0cm)FS (%) 38.0 % SV56.2 mlLVEF(%)68.5 (>50%) LEFT VENTRICLE The left ventricle is normal size. There is borderline to mild concentric left ventricular hypertroph y. The left ventricular systolic function is normal and the ejection fraction is within normal range. Estimated ejection fraction 60-65%. There is normal LV segmental wall motion. RIGHT VENTRICLE The right ventricle is normal size. There is normal right ventricular wall thickness. The right ventr icular systolic function is normal. ATRIA The left atrium size is normal. The right atrium size is normal. The interatrial septum is intact wit h no evidence for an atrial septal defect or patent foramen ovale as noted on 2-D or Doppler imaging. AORTIC VALVE The aortic valve is normal in structure and function. There is no significant aortic valvular stenosi s. MITRAL VALVE The mitral valve is normal in structure and function. There is no evidence of mitral valve prolapse. There is no mitral valve stenosis. TRICUSPID VALVE The tricuspid valve is normal in structure and function. Doppler and Color Flow revealed no tricuspid valve regurgitation noted. There is no tricuspid valve stenosis. GREAT VESSELS The aortic root is normal in size. The ascending aorta is normal in size. The IVC is normal in size a nd collapses >50% with inspiration. PERICARDIAL EFFUSION There is a trace pericardial effusion. <Conclusion> The left ventricular systolic function is normal and the ejection fraction is within normal range. E stimated ejection fraction 60-65%. There is normal LV segmental wall motion. There is a trace pericardial effusion. No evidence of tamponade. Signed by : Enrico Long, Electronically Approved : 10/15/2020 14:41:23
--- NOTE | 2020-10-15 15:13 | NUR ---
Dr. Wheeler pulled paracardial drain around 1445. Patient had Fentanyl before & tolerated procedure well. Gauze & OpSite placed over site. Will continue to monitor. Addendum: 10/15/20 at 1545 by OZZIE LEIJA RN Drainage bag of fluid send down to lab, approximately 800cc serosanguineous fluid in bag.
[2020-10-15 19:47] LABS: BF COLOR RED; BF SOURCE PERICARDIAL
[2020-10-15 19:48] LABS: BF CLARITY TURBID; BF MON % 55 %; BF PMN % 45 %; BF RBC COUNT 123110 /cmm (Not Established); BF WBC COUNT 1047 /cmm (Not Established)
[2020-10-15 20:11] LABS: ANA INTERP Positive (.)
[2020-10-15] MEDS: clonazePAM 0.5 MG TABLET PO PRN (20:47)
[2020-10-15] MEDS: CYCLOBENZAPRINE 10 MG TABLET. PO PRN (20:47)
[2020-10-15] MEDS: PATCH REMOVAL. MC SCH (20:53)
[2020-10-15] MEDS: INSULIN GLARGINE SYRINGE. SQ SCH (20:56)
[2020-10-16] MEDS: PIPERACILLIN/TAZOBACTAM 3.375 GM in IV NORMAL SALINE 50ML 50 ML IV SCH ×3 (00:16→12:01)
[2020-10-16] MEDS: fentaNYL PF VIAL 100 MCG/2 ML VIAL IVP PRN (01:18)
[2020-10-16 07:00] VITALS: BP 117/75
[2020-10-16 08:02] LABS: CALCIUM 8.4 mg/dL (8.5-10.1); CREATININE 0.8 mg/dL (0.6-1.0); GFR 82.6; POTASSIUM 3.7 mmol/L (3.5-5.1)
[2020-10-16] MEDS: CITALOPRAM 20 MG TABLET. PO SCH (08:42)
[2020-10-16] MEDS: GABAPENTIN 300 MG CAPSULE. PO SCH (08:42)
[2020-10-16] MEDS: PANTOPRAZOLE 40 MG TABLET.DR. PO SCH (08:43)
[2020-10-16] MEDS: DOXYCYCLINE HYCLATE 100 MG TABLET PO SCH (08:43)
[2020-10-16] MEDS: LACTOBACILLUS RHAMNOSUS GG 1 CAPSULE. PO SCH (08:43)
[2020-10-16] MEDS: INSULIN LISPRO 300 UNITS/3 ML VIAL. SQ SCH ×4 (08:52→12:09)
[2020-10-16] MEDS: LIDOCAINE (700MG/PATCH) PATCH. TD SCH (08:53)
--- NOTE | 2020-10-16 10:03 | PN ---
DATE: 10/16/2020 SUBJECTIVE: The patient is resting, slightly propped up in bed, in no apparent respiratory distress. She is awake, alert. On questioning her, she denies any complaint, in particular, she had no more abdominal pain, her neck pain has subsided. She is tolerating her diet without any problem and has been afebrile. PHYSICAL EXAMINATION: GENERAL: When I examined her this morning, she was somewhat pale, but no jaundice, cyanosis or thyromegaly. No jugular venous distention. No limb edema. VITAL SIGNS: Her heart rate was 93, blood pressure was 117/75, temperature was 98.1, respiratory rate was 16 and oxygen saturation was 96%. HEAD, EYES, EARS, NOSE AND THROAT: Normocephalic, atraumatic. NECK: Supple. HEART: Showed normal first and second heart sounds, no gallop or murmur. CHEST: Clear to auscultation, no crepitation or rhonchi. ABDOMEN: Distended, soft, nontender. NEUROLOGIC: She is grossly intact. Her intake was 1050, output was 750. LABORATORY DATA: As of this morning, white cell count was 9000, hemoglobin 12, hematocrit 36, MCV 88, platelet count 453,000. Her chemistry showed a serum sodium 139, potassium 3.1, chloride 100, bicarbonate 31, anion gap of 8, BUN 7, creatinine 0.7. Estimated GFR was 96 mL per minute. Her glucose was 209, calcium was 8.2. Total bilirubin, AST, ALT were normal. Alkaline phosphatase slightly elevated. Total protein 6.4, albumin was 2.4, lipase was 34. ASSESSMENT: 1. Abdominal pain, questionable acute pancreatitis, although her serum lipase has been consistently within normal range. 2. The patient has polyserositis with pericardial effusion, ascites and pleural effusion. 3. The patient has fever and complained of neck pain. 4. The patient has pericardial tamponade for which she underwent pericardiocentesis and about 500 mL of serosanguineous fluid were drained. 5. The patient has bilateral lung infiltrates, for which she was started on IV antibiotic. 6. Type 1 diabetes mellitus for which she is on insulin. She is to have insulin infusion pump; however, she is now on insulin sliding scale. 7. Hypothyroidism. 8. Her inflammatory markers are high including sedimentation rate of 74 mm per hour and C-reactive protein of 228.9 mg/dL. PLAN: Obviously to continue with IV antibiotic. Continue to monitor blood sugar and adjust insulin as needed. Await the evaluation by the Infectious Disease and the front end application developer, and if they okayed her discharge, she can go home to follow up as an outpatient. SOY DR: Neena TID: [id number]
[2020-10-16] MEDS ORDERED: FLUCONAZOLE 100 MG TABLET. PO SCH (10:15)
--- NOTE | 2020-10-16 10:50 | PDOC ---
PROGRESS NOTES Date of Service: DATE: 10/16/20 TIME: 10:50 Subjective Subjective Feeling much better Objective Objective Vital Signs Date Time Temp Pulse Resp B/P (MAP) Pulse Ox O2 Delivery O2 Flow Rate FiO2 10/16/20 07:00 98.1 93 16 117/75 (89) 96 Room Air 98.1 10/15/20 21:17 2.0 Intake and Output 10/16/20 07:00 Intake Total 1940 ml Output Total 800 ml Balance 1140 ml Intake Oral 1840 ml IV Total 100 ml Other 800 ml # Voids 5 Physical Exam Abdomen: Soft Heart: Regular rate (SR/ST) Extremities: No edema, Normal pulses General: No acute distress HEENT: Atraumatic Lungs: Clear to auscultation MUSCULOSKELETAL: No deformity Neuro: Other (sleeping ) Skin: No significant lesion Assessment Assessment 1. Abdominal pain, nausea/vomiting; lipase nml. symptoms better 2. Leukocytosis, lactic acidosis, fevers; ID following 3. H/o pectus excavatum s/p Saida procedure at [facility] 12/2019. 4. H/o abdominal abscess s/p Saida procure; resolved with IV antibiotic therapy. 5. Pericardial effusion with tamponade features: S/P pericardiocentesis - repeat echo as outpatient in one month to rule out reaccumulation 6. Elevated LFTs 7. Hyperlipidemia 8. Diabetes, II; as per IM 9. Reactive sinus tachycardia Comment Review of Relevant I have reviewed the following items alex (where applicable) has been applied. Labs Laboratory Tests Test 10/15/20 11:22 10/15/20 14:00 10/15/20 14:59 10/15/20 16:53 Glucose (Fingerstick) 199 mg/dL (70-99) 381 mg/dL (70-99) Sodium Level 137 mmol/L (136-145) Potassium Level 3.6 mmol/L (3.5-5.1) Chloride Level 96 mmol/L (98-107) Carbon Dioxide Level 33 mmol/L (21-32) Anion Gap 8 (6-14) Blood Urea Nitrogen 8 mg/dL (7-20) Creatinine 1.1 mg/dL (0.6-1.0) Estimated GFR (Cockcroft-Gault) 57.2 Glucose Level 341 mg/dL (70-99) Calcium Level 8.8 mg/dL (8.5-10.1) Body Fluid Source Pericardial Body Fluid Color Red Body Fluid Clarity Turbid Body Fluid Nucleated Cells 1047 /cmm (Not Established) Body Fluid Mononuclear WBCs (%) 55 % Body Fluid Polymorphonuclear Cells 45 % Body Fluid Total RBCs Counted 819311 /cmm (Not Test 10/15/20 20:39 10/16/20 06:35 10/16/20 07:45 Glucose (Fingerstick) 260 mg/dL (70-99) 198 mg/dL (70-99) Sodium Level 142 mmol/L (136-145) Potassium Level 3.7 mmol/L (3.5-5.1) Chloride Level 104 mmol/L (98-107) Carbon Dioxide Level 31 mmol/L (21-32) Anion Gap 7 (6-14) Blood Urea Nitrogen 7 mg/dL (7-20) Creatinine 0.8 mg/dL (0.6-1.0) Estimated GFR (Cockcroft-Gault) 82.6 Glucose Level 209 mg/dL (70-99) Calcium Level 8.4 mg/dL (8.5-10.1) Microbiology 10/14/20 Gram Stain - Final, Resulted 10/14/20 Aerobic and Anaerobic Culture, Resulted Pending 10/14/20 Nose/Throat Culture - Preliminary, Resulted 10/14/20 Blood Culture - Preliminary, Resulted NO GROWTH AFTER 1 DAY Medications Current Medications Fluconazole (Diflucan) 100 mg DAILY PO ; Start 10/16/20 at 10:15 Insulin Human Lispro (HumaLOG) 0-5 UNITS TIDWMEALS SQ Last administered on 10/16/20at 08:53; Start 10/15/20 at 17:30 Insulin Human Lispro (HumaLOG) 10 units TIDAC SQ Last administered on 10/16/20at 08:52; Start 10/15/20 at 17:30 Lidocaine HCl (Xylocaine 2% Topical 5gm Tube) 1 sadie 1X ONCE TP ; Start 10/15/20 at 14:30; Stop 10/15/20 at 15:48; Status DC Vitals/I & O Vital Sign - Last 24 Hours 10/15/20 10/15/20 10/15/20 10/15/20 14:35 14:45 14:50 15:05 Temp 98.1 98.1 Pulse 111 108 104 Resp 20 B/P (MAP) 118/68 (85) 124/76 (92) 120/72 (88) Pulse Ox 93 O2 Delivery Room Air Nasal Cannula O2 Flow Rate 2.0 10/15/20 10/15/20 10/15/20 10/15/20 15:15 15:35 16:05 19:36 Temp 98.9 98.9 Pulse 106 108 107 Resp 20 B/P (MAP) 122/74 (90) 129/73 (91) 112/71 (85) Pulse Ox 91 O2 Delivery Nasal Cannula Room Air O2 Flow Rate 2.0 10/15/20 10/15/20 10/15/20 10/15/20 20:00 20:47 21:17 23:25 Temp 98.1 98.1 Pulse 102 Resp 18 18 20 B/P (MAP) 101/57 (72) Pulse Ox 91 91 91 O2 Delivery Room Air Room Air Room Air Room Air O2 Flow Rate 2.0 10/16/20 10/16/20 10/16/20 10/16/20 01:18 01:48 03:00 07:00 Temp 98.1 98.1 Pulse 90 93 Resp 18 18 16 B/P (MAP) 117/75 (89) Pulse Ox 91 91 96 O2 Delivery Room Air Room Air Room Air Intake and Output 10/15/20 10/15/20 10/16/20 15:00 23:00 07:00 Intake Total 720 ml 720 ml 500 ml Output Total 800 ml Balance -80 ml 720 ml 500 ml TUTU RAND MD October 16, 2020 10:50
[2020-10-16 11:14] VITALS: BP 113/70
--- NOTE | 2020-10-16 13:04 | PDOC ---
Infectious Disease Note Subjective Subjective pt is feeling good, wants to go home, ok from cardiology ROS ROS no n/v/d/sob/fever Vital Sign Vital Signs Vital Signs Date Time Temp Pulse Resp B/P (MAP) Pulse Ox O2 Delivery O2 Flow Rate FiO2 10/16/20 11:14 98.1 95 18 113/70 (84) 99 Room Air 98.1 10/15/20 21:17 2.0 Physical Exam PHYSICAL EXAM GENERAL: Alert, oriented x 3, lying in bed comfortably, nontoxic-appearing looks better HEENT: Normocephalic, atraumatic. Anicteric. No thrush. Oral mucosa moist. Dentition in good shape. NECK: Supple. Mild lymphadenopathy present. No meningismus. CARDIOVASCULAR: S1, S2, tachycardia. No murmurs appreciated. No pericardial rub appreciated. Pericardial drain in place with about 800 mL of serosanguineous fluid LUNGS: Decreased breath sounds at the bases. No wheezing. ABDOMEN: Mildly distended, mild hepatomegaly, no masses felt. Bowel sounds present. EXTREMITIES: Trace edema, no cyanosis. DERMATOLOGIC: Warm, dry, no generalized rash. NEUROLOGIC: Alert, awake. Grossly nonfocal, though appears weak. MUSCULOSKELETAL: No joint swelling seen. PSYCHIATRIC: Calm and cooperative. PIV looks okay. Labs Lab Laboratory Tests Test 10/15/20 14:00 10/15/20 14:59 10/15/20 16:53 10/15/20 20:39 Sodium Level 137 mmol/L (136-145) Potassium Level 3.6 mmol/L (3.5-5.1) Chloride Level 96 mmol/L (98-107) Carbon Dioxide Level 33 mmol/L (21-32) Anion Gap 8 (6-14) Blood Urea Nitrogen 8 mg/dL (7-20) Creatinine 1.1 mg/dL (0.6-1.0) Estimated GFR (Cockcroft-Gault) 57.2 Glucose Level 341 mg/dL (70-99) Calcium Level 8.8 mg/dL (8.5-10.1) Body Fluid Source Pericardial Body Fluid Color Red Body Fluid Clarity Turbid Body Fluid Nucleated Cells 1047 /cmm (Not Established) Body Fluid Mononuclear WBCs (%) 55 % Body Fluid Polymorphonuclear Cells 45 % Body Fluid Total RBCs Counted 042326 /cmm (Not Glucose (Fingerstick) 381 mg/dL (70-99) 260 mg/dL (70-99) Test 10/16/20 06:35 10/16/20 07:45 10/16/20 11:46 Sodium Level 142 mmol/L (136-145) Potassium Level 3.7 mmol/L (3.5-5.1) Chloride Level 104 mmol/L (98-107) Carbon Dioxide Level 31 mmol/L (21-32) Anion Gap 7 (6-14) Blood Urea Nitrogen 7 mg/dL (7-20) Creatinine 0.8 mg/dL (0.6-1.0) Estimated GFR (Cockcroft-Gault) 82.6 Glucose Level 209 mg/dL (70-99) Calcium Level 8.4 mg/dL (8.5-10.1) Glucose (Fingerstick) 198 mg/dL (70-99) 232 mg/dL (70-99) Micro Microbiology 10/14/20 Gram Stain - Final, Resulted 10/14/20 Aerobic and Anaerobic Culture - Preliminary, Resulted 10/14/20 Nose/Throat Culture - Preliminary, Resulted 10/14/20 Blood Culture - Preliminary, Resulted NO GROWTH AFTER 1 DAY Objective Assessment 1. Febrile illness. Fever pattern improved 2. Large pericardial effusion and bilateral pleural effusions. Etiology could be infectious versus noninfectious. Does not appear to be mycobacterial on clinical condition S/P Pericardiocentesis with 750 mL of serosanguineous fluid. October 14, 2020 Cell count count not available as the specimen, clotted 3. Nausea, vomiting and abdominal pain with abnormal LFTs. Improved 4. Abnormal CT abdomen with periportal edema, stranding surrounding the pancreas. 5. Leukocytosis and lactic acidosis. 6. History of nephrolithiasis. 7. History of smoking. 8. Diabetes mellitus type 1. 9. Protein-calorie malnutrition. 10. Dog, cat and a bird exposure. 11. Anemia. Plan Plan of Care ok to d/c from ID stand point , on po doxy need f/u with cardiology and ct surgery f/u with us in 2 wks call my office next week for culture check Discussed with nursing staff Discussed with LARRY TAVAREZ MD October 16, 2020 13:04
[2020-10-16] MEDS ORDERED: DOXY100C2 PO (13:10)
[2020-10-16] MEDS ORDERED: FLUC100T7 PO (13:11)
--- NOTE | 2020-10-16 14:34 | NUR ---
Discharge: Teaching verbal and written. Reviewed medications, follow up, pericardial effusion, infection, ECHO, ect. Patient and verbalized understanding. IV removed without complications, catheter tip intact. All belongings with patient. Patient ambulated off of unit with and nurse
[2020-10-20 11:18] LABS: PARVO IGM 0.1 index (0.0-0.8)
== END 2020-10-16 14:15 | disposition home or self-care (01) | DRG 314 ==
LOC: 6 SOUTH 19:55 → 2 SOUTH 10-14 16:50
PROVIDERS: ADMIT Internal Medicine; ATTEND Internal Medicine
PROC: 0W9D30Z Drainage of Pericardial Cavity with Drainage Device, Percutaneous Approach (ICD-10-PCS; principal; 2020-10-14)
DX: I30.1 Infective pericarditis (principal); K85.90 Acute pancreatitis without necrosis or infection, unspecified; E43 Unspecified severe protein-calorie malnutrition; R18.8 Other ascites; J90 Pleural effusion, not elsewhere classified; I31.1 Chronic constrictive pericarditis; B97.89 Other viral agents as the cause of diseases classified elsewhere; I31.3 Pericardial effusion (noninflammatory); I31.4 Cardiac tamponade; D64.9 Anemia, unspecified; E03.9 Hypothyroidism, unspecified; E10.42 Type 1 diabetes mellitus with diabetic polyneuropathy; E10.43 Type 1 diabetes mellitus with diabetic autonomic (poly)neuropathy; E78.5 Hyperlipidemia, unspecified; F17.210 Nicotine dependence, cigarettes, uncomplicated; G43.909 Migraine, unspecified, not intractable, without status migrainosus; G89.29 Other chronic pain; I50.9 Heart failure, unspecified; N20.0 Calculus of kidney; Z79.4 Long term (current) use of insulin; Z82.49 Family history of ischemic heart disease and other diseases of the circulatory system; Z83.3 Family history of diabetes mellitus; Z87.442 Personal history of urinary calculi; Z90.49 Acquired absence of other specified parts of digestive tract; Z96.41 Presence of insulin pump (external) (internal); M19.90 Unspecified osteoarthritis, unspecified site; Z68.29 Body mass index [BMI] 29.0-29.9, adult; Z88.8 Allergy status to other drugs, medicaments and biological substances
CPT/HCPCS: 33016; 36415; 76937; 80048; 80053; 82607; 82784; 82787; 82962; 83540; 83550; 83605; 83690; 83880; 84478; 85025; 85027; 85651; 86038; 86140; 86644; 86645; 86703; 86705; 86709; 86747; 86803; 87040; 87070; 87071; 87075; 87102; 87340; 87449; 87798; 87804; 87880; 89050; 93005; 93306; 93308; 99152; 99153; J1644; J1815; J2250; J2405; J2543; J3010; J3480; J3490; G0378